=== PATIENT | female | born 1990 | race Caucasian/White ===

== ENCOUNTER 2024-12-22 09:21 | Outpatient (AMB) | payer BC, SELFPAY ==
[2024-12-22 09:30] VITALS: BP 145/72; PULSE 72; RESP 16; TEMP 36.8; O2SAT 99; BMI 31.4
--- NOTE | 2024-12-22 09:30 | GYNCLNT_ITS ---
Vital Signs 12/22/24 09:30 Height 1.65 m Height Method Measured Weight 85.474 kg Weight Measurement Method Standing Scale BMI 31.4 BP 145/72 H Blood Pressure Source Automatic Cuff Blood Pressure Location Left Upper Arm Position Sitting Respiration 16 Pulse 72 Pulse Source Monitor Temp 98.2 F Temp Source Oral Pulse Oximetry (%) 99 Oxygen Delivery Method Room Air Allergies/Home Meds Allergies & Medications Allergies No Known Allergies Allergy (Verified 12/22/24 09:31) Medication Reconciliation No Known Home Medications 12/22/24 [History Confirmed 12/22/24] Intake Visit Data Collection New Patient or Established: New Patient (never been to [facility]) Reason for Visit:: Annual well woman exam with Pap and pelvic exam. Discuss contraception. 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 Has had irregular bleeding on the progesterone only control Questionnaires Covid-19 Vaccine Questionnaire Has patient been vacinated for Covid-19 Have you been vacinated for Covid-19: Yes PHQ-9 PHQ-2 Over the last 2 weeks, how often have you been bothered by any of the following problems? 1. Little interest or pleasure in doing things: not at all 2. 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 Tobacco History Smoking Status: Never smoker Alcohol History Alcohol Intake: Never Domestic Abuse History Do You Feel Safe at Home: Yes Past Medical History Past Medical History Have you ever been diagnosed with any of the following: Neurological Problems Meningitis: No Seizures: No Epilepsy: No Guillain-Spangler Syndrome: No Ramirez's Palsy: No Migraine: No Cardiology Problems Cardiac Arrhythmia: No Heart Murmur: No Hypercholesterolemia: No Deep Vein Thrombosis: No Hypertension: No Hypotension: No Respiratory Problems Asthma: No Tuberculosis: No Pulmonary Embolism: No Smoking: No Stomache/Intestinal Problems Celiac Disease: No Gall Bladder Disease: No Colitis: No Irritable Bowel: No Gastroesophageal Reflux Disease: No Genital/Urinary Problems Renal Disease: No Kidney Stones: No Reproductive Problems Breast Cancer: No Endometriosis: No Fibroids: No Genital Herpes: No Gonorrhea: No Polycystic Ovarian Syndrome: No Previous Pregnancies: Yes ( x 3 in the past 2019, 2020, 2023.) Syphilis: No Musculoskeletal Problems Arthritis: No Rheumatoid Arthritis: No Scoliosis: No Fibromyalgia: No Head,Eye,Nose,Throat Problems Glaucoma: No Endocrine Problems Diabetes Mellitus Type 2: No Hyperthyroidism: No Hypothyroidism: No Thyroid Cancer: No Pituitary Disease: No Systemic Lupus Erythematosus: No Blood Problems Anemia: No Clotting Problems: No Psychologic Problems Depression: No Anxiety: No Attention Deficit Disorder: No Attention Deficit Hyperactivity Disorder: No Eating Disorder: No Other Problems Hospitalization: Yes (For history of x 3 in the past) Autoimmune Disease: No Cosmetic Surgery: No Blood Transfusions: No Anesthesia Reactions: No Surgical History Appendectomy: No Bariatric Surgery: No Breast Surgery: No Additional Surgical History: x 3 in the past 2019, 2020, 2023 also treatment for infertility in the past. History of Present Illness HPI Narrative The patient is a pleasant 34-year-old -0-2-3 who presents for an annual exam she was a patient in my practice in [place]. She has 3 children. Her daughter Lito will turn 5 in February, her son Juan Miguel will turn 4 in August and her youngest son Denny just turned 1 in October. They are all doing well. Patient recently stopped breast-feeding Denny and has been on Micronor for contraception. 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 Patient has no gynecological complaints today specifically no abnormal discharge no painful intercourse no urinary complaints including incontinence or pelvic pressure symptoms. Patient has some irregular bleeding on the control pill. Review of Systems Constitutional Constitutional: Reports system reviewed and no additional complaints, except as documented Comments: Patient denies fatigue or skin changes she does report difficulty losing weight but states this is always been hard for her. She declines thyroid testing today. Genitourinary Genitourinary: Reports abnormal vaginal bleeding Comments: Some irregular bleeding on the Micronor control pill. Exam General Limitations: no limitations General Appearance: alert, in no apparent distress, comfortable, cooperative, healthy appearing and well groomed Head Head exam: atraumatic, normocephalic and normal inspection Neck Neck exam: Present normal inspection, full ROM and trachea midline Chest Chest inspection: Present normal inspection and symmetric chest wall rise Exp Chest Breast: bilateral: other (Normal breast exam bilaterally) Resp Respiratory exam: Present normal lung sounds bilaterally Card Cardiovascular exam: Present regular rate, normal rhythm and normal heart sounds Abdominal Abdominal exam: Present soft, normal bowel sounds and scar (Pfannenstiel scar well-healed) External exam: Present normal external exam Speculum exam: Present normal speculum exam Bimanual exam: Present normal bimanual exam Extremities Extremities exam: Present normal inspection and full ROM Psych Psychiatric exam: Present normal affect and normal mood Skin Skin exam: Present warm, dry, intact and normal color Assessment & Plan Diagnosis / Problem List (1) Well woman exam with routine gynecological exam: Status: Acute Plan: Pap with high risk HPV was performed breast exam done and encouraged (2) Annual wellness visit: Status: Acute Plan: Discussed exercise healthy eating and moderate weight loss. Plan Patient declines IUD or Nexplanon for contraception, she would like to go on oral contraceptives. She is okay with any kind of OCP. Will try Loestrin. We will call this in the [facility]. Patient will follow-up in 1 year or as needed. 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 Papsmear completed: yes
== END 2024-12-22 10:24 | disposition home or self-care (01) ==
LOC: HODSOBC 09:21
PROVIDERS: Supervising Provider Obstetrics & Gynecology; Visit Provider Obstetrics & Gynecology
DX: Z01.419 Encounter for gynecological examination (general) (routine) without abnormal findings (principal); Z79.3 Long term (current) use of hormonal contraceptives
CPT/HCPCS: 99203; G0463